=== PATIENT | female | born 1990 | race African-American/Black ===

== ENCOUNTER 2021-02-02 10:47 | Emergency (ER) | payer MEDICARE, SELFPAY ==
--- NOTE | ~2021-02-02 | CT_ITS ---
EXAMINATION: CT abdomen pelvis wo con DATE: 02/02/2021 13:19 INDICATION: Vomiting. Abdominal pain. TECHNIQUE: Computed tomography (CT) of the abdomen and pelvis was performed without intravenous contr ast. Automated exposure control and iterative reconstruction technique were employed. The dose-length product was 812.85 mGy-cm. COMPARISON: None. FINDINGS: The visualized portions of the lung bases are clear without pneumonia or pleural effusion. The heart size is normal. There is a small pericardial effusion. The liver, gallbladder, spleen, panc reas, and adrenal glands are normal. There is severe atrophy of the [place] kidneys. There is a transp lant kidney in right iliac fossa. There are no dilated loops of bowel. The appendix is normal. There are no pathologically enlarged lymph nodes. There is trace pelvic ascites. There is mild lumbar spond ylosis. IMPRESSION: 1. Small pericardial effusion. Reviewed, dictated and finalized at location A.
[2021-02-02 10:56] VITALS: BP 140/91; PULSE 95; RESP 17; TEMP 36.6; O2SAT 99
[2021-02-02 11:54] LABS: Add Urine Microscopic? YES; Appearance Urine Clear (Clear); Bilirubin Urine Negative (Negative); Blood Urine Negative (Negative); Color Urine Yellow (Yellow); Glucose Urine UA Negative (Negative); Ketones Urine Negative (Negative); Leukocyte Esterase Ur Negative LEU/UL (Negative); Nitrate Urine Negative (Negative); Protein Urine 1+ mg/dL (Negative); Specific Grav Ur 1.019 (1.001-1.035); Squamous Epithelial Cell Urine Occasional /hpf (Few); Urobilinogen Urine Negative mg/dL (<2.0); WBC Urine 0-3 /hpf
[2021-02-02 12:31] LABS: Basophils Percent Auto 0.2 % (0.2-1.2); Eosinophils Percent Auto 0.1 % (0-4.4); Hematocrit 40.5 % (37.0-47.0); Hemoglobin 12.7 g/dL (12.0-15.0); Immature Granulocyte Absolute 0.13 K/mm3 (0.00-0.031); Immature Granulocyte Percent A 0.7 % (0-0.5); Lymphocytes Absolute Auto 1.49 K/mm3 (0.9-3.2); Mean Corpuscular HGB Conc 31.4 g/dl (32-36); Mean Corpuscular Hemoglobin 29.2 pg (26-34); Mean Corpuscular Volume 93.1 fl (80-100); Monocytes Absolute Auto 0.9 K/mm3 (0.1-0.6); Monocytes Percent Auto 4.7 % (2.6-8.5); Neutrophils Percent Auto 86.3 % (45.5-73.1); Platelet Count Result 191 k/mm3 (150-375); Red Blood Count 4.35 M/mm3 (4.2-5.4); Red Cell Distribution Width 12.4 % (11.5-14.5); White Blood Count 18.5 K/mm3 (4.5-10.0)
--- NOTE | 2021-02-02 12:31 | ED.GENADULT ---
HPI - General Adult General Chief complaint: Nausea/Vomiting/Diarrhea Stated complaint: Vomiting since 944 today- since stopped Time Seen by Provider: 02/02/21 12:04 Source: RN notes reviewed History of Present Illness HPI narrative: Patient presents to emergency department from home for nausea vomiting. Patient states that for the last day she has had a sore throat and mild rhinorrhea. States that this morning she ate a cup of noodles and subsequently had several episodes of emesis. States that this time she continues have nausea with a feeling of something sitting on her stomach she denies any fevers or chills chest pain shortness of breath cough abdominal pain diarrhea or any other symptoms states she took no medication for the symptoms. Patient does states she has a history of renal transplant 7 months ago at [facility] Related Data Home Medications Medication Instructions Recorded Confirmed Senna Lax 02/02/21 amlodipine 02/02/21 aspirin PO 02/02/21 atorvastatin 02/02/21 carvedilol 02/02/21 hydralazine-hydrochlorothiazid 02/02/21 magnesium 02/02/21 02/02/21 mycophenolate sodium [Myfortic] PO 02/02/21 prednisone 02/02/21 sodium bicarbonate 02/02/21 sulfamethoxazole-trimethoprim tablet 02/02/21 [Bactrim DS] tacrolimus [Envarsus XR] 1 mg PO DAILY 02/02/21 02/02/21 Allergies Allergy/AdvReac Type Severity Reaction Status Date / Time No Known Allergies Allergy Verified 02/02/21 11:37 Review of Systems Review of Systems: Narrative: Gen.: Denies fevers or chills Eyes: Denies eye pain or visual change ENT: See HPI Respiratory: Denies shortness of breath or cough CV: Denies chest pain or palpitations GI: Denies abdominal pain or diarrhea. Reports nausea and vomiting Musculoskeletal: Denies back pain or muscle pain Neuro: Denies numbness, tingling, weakness or focal weakness Skin: Denies rash Except as documented, all other systems reviewed and negative PMFSH Surgical History Surgical History (Updated 02/02/21 @ 12:33 by Bryce Bal DO) Kidney transplant recipient Social History Social History (Updated 02/02/21 @ 12:33 by Bryce Bal DO) Smoking status: Never smoker Exam Narrative: Exam Narrative: APPEARANCE: No acute distress, nontoxic, resting in bed EYES: EOMI HEENT: Normocephalic, atraumatic, nares patent, oral mucosa moist, mild erythema with no exudate posterior pharynx bilateral tonsils uvula midline tolerating own secretions no trismus RESPIRATORY: No respiratory distress Clear to auscultation bilaterally with no rhonchi wheezing or rales. CARDIOVASCULAR: Regular rate and rhythm without murmurs rubs or gallops. ABDOMINAL: Soft, nontender, nondistended, no rebound or guarding MUSCULOSKELETAl: Moves all extremities. No clubbing, cyanosis or edema. NEURO: Awake and alert. Following commands, speech normal, no focal deficits SKIN:: Warm, dry. No rashes lesions or abrasions PSYCHIATRIC: Normal affect/mood, Course Course Emergency Course: Discussed with patient her current white blood cell count she states that she has a history of a chronically elevated white blood cell count Called and discussed with nephrology at [facility] Dr. Henderson states the patient does have a history of elevated WBC. Agrees with plan for discharge to follow-up as an outpatient Patient able to eat and drink in ED with no emesis Discussed with patient results of workup and diagnosis. Discussed need for follow-up with primary care, proper use of medication, and reasons to return to the emergency department. Patient understands and agrees to current treatment plan Vital Signs Vital signs: Vital Signs Temperature 97.8 F 02/02/21 10:56 Pulse Rate 95 02/02/21 10:56 Respiratory Rate 17 02/02/21 10:56 Blood Pressure 140/91 H 02/02/21 10:56 Pulse Oximetry 99 02/02/21 10:56 Temperature 98 F 02/02/21 14:27 Pulse Rate 92 02/02/21 14:27 Respiratory Rate 16 01/15
[2021-02-02 12:41] LABS: Alanine Aminotransferase 12 U/L (4-35); Albumin Level 4.1 g/dL (3.5-5.1); Alkaline Phosphatase 59 U/L (38-126); Anion Gap 6 mmol/L (8-16); Aspartate Amino Transferase 18 U/L (14-36); Bilirubin,Total 0.4 mg/dL (0.2-1.3); Blood Urea Nitrogen 14 mg/dL (7-17); Calcium 9.8 mg/dL (8.4-10.2); Carbon Dioxide 25 mmol/L (22-30); Chloride 107 mmol/L (98-107); Estimated CRCL calculation 116 ml/min; Estimated Glomerular Filt Rate > 60; Glucose 112 mg/dL (65-105); Lipase 45 U/L (23-300); Potassium 4.1 mmol/L (3.4-5.0); Sodium 138 mmol/L (137-145)
[2021-02-02] MEDS: SODIUM CHLORIDE 0.9% IV 1,000 ML 999 ML (12:42)
[2021-02-02] MEDS: FAMOTIDINE 20 MG/2 ML VIAL (12:42)
[2021-02-02] MEDS: ONDANSETRON INJ 4 MG/2 ML VIAL (12:42)
[2021-02-02 14:27] VITALS: BP 123/74; PULSE 92; RESP 16; TEMP 36.6; O2SAT 100
[2021-02-02 15:44] VITALS: BP 134/84; PULSE 95; RESP 18; O2SAT 100
== END 2021-02-02 15:51 | disposition home or self-care (01) ==
PROVIDERS: Emergency Medicine; Emergency Provider Emergency Medicine
DX: J02.9 Acute pharyngitis, unspecified (principal); R11.2 Nausea with vomiting, unspecified; Z94.0 Kidney transplant status
CPT/HCPCS: 36415; 74176; 80053; 81001; 83690; 85025; 87081; 87880; 96361; 96374; 96375; 99284; J2405; J7030

== ENCOUNTER 2022-10-23 23:02 | Inpatient (IN) | payer MEDICARE, SELFPAY ==
--- NOTE | ~2022-10-23 | CT_ITS ---
Non-contrast CT scan of the Abdomen and Pelvis Clinical indication: Abdominal pain Technique: 5 mm axial scans were obtained through the abdomen and pelvis without intravenous or oral contrast. Dose reduction technique was used on this scan by utilizing automated exposure control and iterative reconstruction technique. The dose-length product (DLP) was 816.75 mGy-cm. COMPARISON: 02/02/2021 Findings: Images through the lung bases reveal no abnormalities. Negative kidneys are markedly atrophic. Right lower quadrant transplant kidney is present, without ev idence of hydronephrosis or stone. The liver, spleen, pancreas, gallbladder, and adrenals appear normal. There is no aortic aneurysm. There is no evidence of bowel obstruction. Images through the pelvis were performed. There is no evidence of ascites or lymphadenopathy. Urinary bladder unremarkable. No adnexal mass evident. Impression: No acute abnormality seen. Right lower quadrant transplant kidney present, without evidence of hydronephrosis or stone. Reviewed, dictated and finalized at [facility]. [employer] Impression: No acute abnormality seen. Right lower quadrant transplant kidney present, without evidence of hydronephro sis or stone.
[2022-10-23 23:06] VITALS: BP 129/88; PULSE 109; RESP 16; TEMP 36.7; O2SAT 96
[2022-10-23 23:30] LABS: Appearance Urine Slightly Cloudy (Clear); Bilirubin Urine 1+ (Negative); Blood Urine 3+ (Negative); Color Urine Amber (Yellow); Glucose Urine UA Negative (Negative); Ketones Urine Negative (Negative); Leukocyte Esterase Ur Negative LEU/UL (Negative); Nitrate Urine Negative (Negative); Protein Urine 1+ mg/dL (Negative); Specific Grav Ur >= 1.030 (1.001-1.035); Urobilinogen Urine 0.2 mg/dL (<2.0); pH Urine 5.5 (5.0-9.0)
[2022-10-23 23:32] LABS: Basophils Percent Auto 0.2 % (0.2-1.2); Eosinophils Percent Auto 0.3 % (0-4.4); Hematocrit 43.7 % (37.0-47.0); Hemoglobin 13.7 g/dL (12.0-15.0); Immature Granulocyte Absolute 0.08 K/mm3 (0.00-0.031); Immature Granulocyte Percent A 0.7 % (0-0.5); Lymphocytes Absolute Auto 1.53 K/mm3 (0.9-3.2); Lymphocytes Percent Auto 13.7 % (18.3-44.2); Mean Corpuscular HGB Conc 31.4 g/dl (32-36); Mean Corpuscular Hemoglobin 27.7 pg (26-34); Mean Corpuscular Volume 88.3 fl (80-100); Mean Platelet Volume 9.5 fl (7.4-10.4); Monocytes Absolute Auto 0.8 K/mm3 (0.1-0.6); Monocytes Percent Auto 7.4 % (2.6-8.5); Neutrophils Absolute Auto 8.7 K/mm3 (1.3-6.7); Neutrophils Percent Auto 77.7 % (45.5-73.1); Platelet Count Result 246 k/mm3 (150-375); Red Blood Count 4.95 M/mm3 (4.2-5.4); Red Cell Distribution Width 13.4 % (11.5-14.5); White Blood Count 11.2 K/mm3 (4.5-10.0)
[2022-10-23 23:40] LABS: Bacteria Urine Trace /hpf; Mucus Urine Rare /lpf; RBC Urine >75 /hpf (0-2); Squamous Epithelial Cell Urine Moderate /hpf (Few); WBC Urine 51-75 /hpf
[2022-10-23 23:41] LABS: Alanine Aminotransferase 17 U/L (6-35); Albumin Level 4.1 g/dL (3.5-5.1); Alkaline Phosphatase 80 U/L (38-126); Anion Gap 4 mmol/L (8-16); Aspartate Amino Transferase 19 U/L (14-36); Bilirubin,Total 0.5 mg/dL (0.2-1.3); Blood Urea Nitrogen 10 mg/dL (7-17); Calcium 9.1 mg/dL (8.4-10.2); Carbon Dioxide 25 mmol/L (22-30); Chloride 104 mmol/L (98-107); Estimated CRCL calculation 130 ml/min; Estimated Glomerular Filt Rate > 60; Glucose 108 mg/dL (65-110); Lipase 36 U/L (23-300); Potassium 3.6 mmol/L (3.4-5.0); Sodium 133 mmol/L (137-145)
[2022-10-23 23:45] LABS: Add Urine Microscopic? YES
[2022-10-24] VITALS (7 sets, daily range): BP systolic 111–141; BP diastolic 65–95; PULSE 85–102; RESP 14–18; TEMP 35.9–37.1; O2SAT 97–100
--- NOTE | 2022-10-24 01:16 | ED.GENADULT ---
HPI - General Adult General Chief complaint: Abdominal Pain Stated complaint: abdominal pain Time Seen by Provider: 10/24/22 01:02 History of Present Illness HPI narrative: 32-year-old female present emergency department for evaluation of nausea vomiting and abdominal pain that started last night. Patient states last night she was having some lower pelvic pain and then today she primarily was having issues with nausea and vomiting. Patient is a kidney transplant from 2019 secondary to issues with eclampsia and subsequent hypertension. Patient follows up at [facility] transplant team. Patient does take mycophenolate and tacrolimus. Patient is also on a number of blood pressure medications. Related Data Home Medications Medication Instructions Recorded Confirmed Senna Lax 02/02/21 amlodipine 10 mg tablet 10 mg PO DAILY 02/02/21 10/24/22 aspirin 81 mg tablet 81 mg PO DAILY 02/02/21 10/24/22 atorvastatin 20 mg PO DAILY 02/02/21 10/24/22 carvedilol 25 mg tablet 25 mg PO DAILY 02/02/21 10/24/22 magnesium 400 mg PO DAILY 02/02/21 10/24/22 mycophenolate sodium 180 mg 180 mg PO DAILY 02/02/21 10/24/22 tablet,delayed release (Myfortic) prednisone 5 mg tablet 5 mg PO DAILY 02/02/21 10/24/22 sodium bicarbonate 02/02/21 tacrolimus 1 mg tablet,extended 1 mg PO DAILY 02/02/21 10/24/22 release 24 hr (Envarsus XR) hydralazine 50 mg tablet 50 mg PO TID 10/24/22 10/24/22 nifedipine 30 mg tablet,extended 30 mg PO DAILY 10/24/22 10/24/22 release Allergies Allergy/AdvReac Type Severity Reaction Status Date / Time No Known Allergies Allergy Verified 10/24/22 00:03 Review of Systems Review of Systems: CONSTITUTIONAL: Denies fever, chills, or sweats. EYES: Denies visual changes, redness, or discharge. ENT: Denies rhinorrhea, congestion, sore throat, or otalgia. CARDIOVASCULAR: Denies chest pain, palpitations, or edema. RESPIRATORY: Denies cough or dyspnea. GASTROINTESTINAL: See HPI GENITOURINARY: See HPI SKIN: Denies rash or itching. MUSCULOSKELETAL: Denies back pain, joint pain, or myalgia. NEUROLOGIC: Denies headache, numbness, or weakness. [facility] Surgical History Surgical History (Updated 10/24/22 @ 04:54 by Javier Baxter MD) Kidney transplant recipient Family History Family History Other Unknown family medical history Social History Social History (Updated 02/02/21 @ 12:33 by Bryce Bal DO) Smoking status: Never smoker Second hand tobacco smoke exposure: No Substance use: never Lack of Transportation: No Lack of Food: Never True Current Housing: I Have Housing Concerned About Future Housing: No Difficulty Paying Gas/Electric Bills: No Difficulty Paying for Meds: No Currently Unemployed: No Education: Don't Know Difficulty w/ Childcare or Family Care: No Spiritual care concerns: No Exam Narrative: APPEARANCE: Well appearing, no pain, no distress, well-nourished. HEAD: normocephalic, atraumatic. EYES: PERRLA/EOMI, conjunctivae clear. NOSE: Normal no drainage NECK: Supple. No adenopathy, no masses. RESPIRATORY: Airway patent, respirations nonlabored. Clear to auscultation bilaterally, no rales, rhonchi, wheezing. CARDIOVASCULAR: Regular rate and rhythm without murmurs rubs or gallops. ABDOMINAL: Soft nondistended, normal bowel sounds, mild upper abdominal tenderness. No lower abdominal tenderness to palpation MUSCULOSKELETAL: Moves all extremities. Strength/ROM intact, No edema, No calf tenderness. NEURO: Alert. Cranial nerves II through XII intact. Grossly intact SKIN: Warm, dry. Normal Color Course Course Emergency Course: UA was concerning for urinary tract infection. Urine cultures were ordered. Patient was started on Rocephin IV. Patient was also treated with normal saline and 4 mg of IV Zofran. Patient's BUN and creatinine are within normal limits. Case was discussed with the patient's gui developer a
[2022-10-24] MEDS: SODIUM CHLORIDE 0.9% IV 1,000 ML 999 ML IV CONT (01:40)
--- NOTE | 2022-10-24 01:55 | PM.IMHP ---
H&P: HPI History of Present Illness Date/Time: 10/24/22 01:55 Chief Complaint: Abdominal pain Narrative: This is a 32-year-old female with past medical history significant for eclampsia, end-stage renal disease, hypertension, patient is now status post a renal transplant and currently on immunosuppressive therapy mycophenolate and tacrolimus. Patient presents to the emergency room due to abdominal pain discomfort with urination, nausea, vomiting generalized malaise, denies fevers, rigors, chills, night sweats. Preliminary workup was significant for urinalysis with numerous WBCs present, patient tested negative for influenza type A, influenza type B, RSV, COVID-19. Transplant team has been contacted. Patient is been admitted for further evaluation management and treatment. Review of Systems Review of Systems: Abdominal pain, nausea, vomiting pain or burning with urination, generalized malaise. Constitutional: Constitutional: Denies chills, Reports fatigue, Denies fever(s), Reports lethargy, Reports malaise, Denies night sweats and Reports poor appetite Eyes: Eyes: Denies change in vision ENT: Denies dysphagia and Denies odynophagia Cardiovascular: Cardiovascular: Denies chest pain, Denies leg edema, Denies lightheadedness and Denies palpitations Respiratory: Respiratory: Denies change in phlegm color, Denies chest congestion, Denies cough, Denies excessive phlegm production, Denies pain on inspiration, Denies dyspnea and Denies dyspnea on exertion Gastrointestinal: Gastrointestinal: Reports abdominal pain, Denies dyspepsia, Reports heartburn, Denies diarrhea, Reports nausea and Reports vomiting Genitourinary: Genitourinary: Reports dysuria Musculoskeletal: Musculoskeletal: Reports muscle weakness Integumentary/Breasts: Skin/Breast: Denies rash Neurologic: Denies focal weakness and Denies Sensory deficit (Neuro) Psychiatric: Psychiatric: Reports no additional psychiatric complaints and Reports as per HPI Endocrine: Endocrine: Denies cold intolerance, Denies flushing, Denies heat intolerance, Denies polyphagia, Denies polydipsia and Denies palpitations Hematologic/Lymphatic: Hematologic/Lymphatic: Reports no additional hematologic/lymphatic complaints and Reports as per HPI Allergic/Immunologic: Allergic/Immunologic: Reports no additional allergic/immunologic complaints and Reports as per HPI PMFSH Surgical History Surgical History (Updated 02/02/21 @ 12:33 by Bryce Bal DO) Kidney transplant recipient Social History Social History (Updated 02/02/21 @ 12:33 by Bryce Bal DO) Smoking status: Never smoker Meds Home Medications and Allergies Home Medications Medication Instructions Recorded Confirmed Type Senna Lax 02/02/21 History amlodipine 10 mg tablet 02/02/21 History aspirin 81 mg tablet PO 02/02/21 History atorvastatin 02/02/21 History carvedilol 25 mg tablet 02/02/21 History famotidine 20 mg tablet (Pepcid) 20 mg PO DAILY #14 tabs 02/02/21 Rx magnesium 02/02/21 02/02/21 History mycophenolate sodium 180 mg PO 02/02/21 History tablet,delayed release (Myfortic) ondansetron 4 mg disintegrating 4 mg PO Q6H PRN nausea and 02/02/21 Rx tablet vomiting #10 tabs prednisone 5 mg tablet 02/02/21 History sodium bicarbonate 02/02/21 History tacrolimus 1 mg tablet,extended 1 mg PO DAILY 02/02/21 02/02/21 History release 24 hr (Envarsus XR) hydralazine 50 mg tablet 50 mg PO TID 10/24/22 10/24/22 History nifedipine 30 mg tablet,extended 30 mg PO DAILY 10/24/22 10/24/22 History release Allergies Allergy/AdvReac Type Severity Reaction Status Date / Time No Known Allergies Allergy Verified 10/24/22 00:03 Vital Signs Vital Signs - 24 hr 10/23/22 23:06 10/24/22 00:01 10/24/22 01:41 Temperature 98.1 F 98.7 F Pulse Rate 109 H 102 H 95 Respiratory Rate 16 14 14 Blood Pressure 129/88 120/65 114/67 Pulse Oximetry 96 98 97 Exam Narrative: Patient
[2022-10-24 02:23] LABS: Influenza A QL RT-PCR Negative (Negative); Influenza B QL RT-PCR Negative (Negative); RSV RNA, RT-PCR Negative (Negative); SARS-CoV-2 RNA PCR Negative
[2022-10-24] MEDS: ONDANSETRON INJ 4 MG/2 ML VIAL IV PUSH (02:27)
[2022-10-24 02:44] LABS: Pregnancy On Board Control Positive; Urine Pregnancy Test Negative
[2022-10-24 10:19] LABS: Basophils Percent Auto 0.2 % (0.2-1.2); Eosinophils Percent Auto 0.4 % (0-4.4); Hematocrit 38.7 % (37.0-47.0); Hemoglobin 12.1 g/dL (12.0-15.0); Immature Granulocyte Absolute 0.07 K/mm3 (0.00-0.031); Immature Granulocyte Percent A 0.8 % (0-0.5); Lymphocytes Percent Auto 19.1 % (18.3-44.2); Mean Corpuscular HGB Conc 31.3 g/dl (32-36); Mean Corpuscular Hemoglobin 27.3 pg (26-34); Mean Corpuscular Volume 87.2 fl (80-100); Mean Platelet Volume 9.6 fl (7.4-10.4); Monocytes Absolute Auto 0.8 K/mm3 (0.1-0.6); Monocytes Percent Auto 9.9 % (2.6-8.5); Neutrophils Absolute Auto 5.8 K/mm3 (1.3-6.7); Neutrophils Percent Auto 69.6 % (45.5-73.1); Platelet Count Result 213 k/mm3 (150-375); Red Blood Count 4.44 M/mm3 (4.2-5.4); Red Cell Distribution Width 13.4 % (11.5-14.5); White Blood Count 8.4 K/mm3 (4.5-10.0)
[2022-10-24 10:38] LABS: Anion Gap 5 mmol/L (8-16); Blood Urea Nitrogen 10 mg/dL (7-17); Calcium 8.6 mg/dL (8.4-10.2); Carbon Dioxide 24 mmol/L (22-30); Chloride 102 mmol/L (98-107); Estimated CRCL calculation 130 ml/min; Estimated Glomerular Filt Rate > 60; Glucose 109 mg/dL (65-110); Potassium 3.2 mmol/L (3.4-5.0); Sodium 131 mmol/L (137-145)
[2022-10-24] MEDS: predniSONE 5 MG TABLET PO (11:06)
[2022-10-24] MEDS: ASPIRIN 81 MG CHEWABLE TABLET PO (11:06)
[2022-10-24] MEDS: carvediloL 25 MG TABLET PO ×2 (11:06→21:39)
[2022-10-24] MEDS: ATORVASTATIN 20 MG TABLET PO (11:07)
[2022-10-24] MEDS: MAGNESIUM OXIDE 400 MG TABLET PO (11:07)
[2022-10-24] MEDS: FAMOTIDINE 20 MG TABLET PO (11:07)
--- NOTE | 2022-10-24 14:09 | PM.IMPN ---
Progress Note: A&P Assessment and Plan (1) Urinary tract infection: Code(s): N39.0 - Urinary tract infection, site not specified Status: Acute (2) Kidney transplant recipient: Code(s): Z94.0 - Kidney transplant status Status: Acute (3) Hypokalemia: Code(s): E87.6 - Hypokalemia Status: Acute Plan ?32-year-old female with past medical history significant for eclampsia, end-stage renal disease, hypertension, patient is now status post a renal transplant and currently on immunosuppressive therapy mycophenolate and tacrolimus presented to the emergency room due to abdominal pain discomfort with urination, nausea, vomiting generalized malaise, denies fevers, rigors, chills, night sweats.Found to have UTI. 1)UTI: C/w Ceftriaxone No pain Await Urine culture Leucocytosis has resolved 2)Hypokalemia:supplement potassium 3)H/o Renal Transplant: CT abdomen with no acute concerns Hold immunosuppressive agents c/w Prednisone 3)HTN:c/w Norvasc, Coreg 4)DVT ppx: Hep SQ 5)Code:Full 6)Dispo:anticipate discharge in 1-2 days if stable Time Spent With Patient Time with patient: 15 - 25 minutes Subjective Date/time seen: 10/24/22 14:09 Interval history: feeling well No acute events overnight Review of Systems Review of Systems: All systems reviewed & are unremarkable except as noted in HPI and below Constitutional: Constitutional: Reports no additional constitutional complaints Eyes: Eyes: Reports no additional eye complaints ENT: Reports system reviewed and no additional complaints, except as documented Cardiovascular: Cardiovascular: Reports no additional cardiovascular complaints Respiratory: Respiratory: Reports no additional respiratory complaints Gastrointestinal: Gastrointestinal: Reports no additional gastrointestinal complaints Musculoskeletal: Musculoskeletal: Reports no additional musculoskeletal complaints Neurologic: Reports system reviewed and no additional complaints, except as documented Exam Const: General: comfortable and no acute distress HENMT: Mouth: Yes moist mucous membranes Eyes: Sclera: sclerae normal Pupils: Equal, round and reactive pupils present Neck: Neck: supple Resp: Effort & Inspection: normal respiratory effort Cardio: Rate: regular rate Rhythm: regular rhythm GI: GI Palp: Yes Soft to palpation Auscultation: normal bowel sounds Other: non tender Skin: General skin exam: normal color Neuro: General: gait normal Speech: normal speech Extrem: General: normal to inspection Psych: Mental Status: mental status grossly normal Objective Data Vital Signs Vital Signs: Vital Signs - 24 hr 10/23/22 23:06 10/24/22 00:01 10/24/22 01:41 Temperature 98.1 F 98.7 F Pulse Rate 109 H 102 H 95 Respiratory Rate 16 14 14 Blood Pressure 129/88 120/65 114/67 Pulse Oximetry 96 98 97 Oxygen Delivery 10/24/22 02:30 10/24/22 04:33 10/24/22 06:00 Temperature 97 F L Pulse Rate 91 86 Respiratory Rate 14 14 Blood Pressure 111/74 112/74 Pulse Oximetry 98 100 Oxygen Delivery Room Air 10/24/22 08:00 Temperature Pulse Rate Respiratory Rate Blood Pressure Pulse Oximetry Oxygen Delivery Room Air Intake/Output Intake/Output: Intake & Output 10/21/22 10/22/22 10/23/22 10/24/22 23:59 23:59 23:59 23:59 Intake Total 1498 Balance 1498 Meds/Results Medications: Active Medications Generic Name Dose Route Start Last Admin Trade Name Stephanie PRN Reason Stop Dose Admin Amlodipine Besylate 10 mg 10/24/22 09:00 10/24/22 11:08 Amlodipine Besylate 5 Mg Tablet PO Not Given DAILY PAUL Aspirin 81 mg 10/24/22 09:00 10/24/22 11:06 Aspirin 81 Mg Chewable Tablet PO 11/24/22 08:59 81 mg DAILY PAUL Administration Atorvastatin Calcium 20 mg 10/24/22 09:00 10/24/22 11:07 Atorvastatin 20 Mg Tablet PO 11/24/22 08:59 20 mg DAILY PAUL Administration Carvedilol 25 mg
[2022-10-24] MEDS: POTASSIUM CHLORIDE 20 MEQ PACKET (FOR LIQUID) 40 MEQ PO (16:55)
[2022-10-25 05:12] VITALS: BP 129/76; PULSE 81; RESP 16; TEMP 36.7; O2SAT 100
[2022-10-25 06:37] LABS: Basophils Percent Auto 0.3 % (0.2-1.2); Eosinophils Percent Auto 0.4 % (0-4.4); Hematocrit 39.3 % (37.0-47.0); Hemoglobin 12.1 g/dL (12.0-15.0); Immature Granulocyte Absolute 0.11 K/mm3 (0.00-0.031); Lymphocytes Absolute Auto 2.47 K/mm3 (0.9-3.2); Lymphocytes Percent Auto 21.7 % (18.3-44.2); Mean Corpuscular HGB Conc 30.8 g/dl (32-36); Mean Corpuscular Hemoglobin 26.9 pg (26-34); Mean Corpuscular Volume 87.5 fl (80-100); Monocytes Absolute Auto 1.1 K/mm3 (0.1-0.6); Monocytes Percent Auto 9.6 % (2.6-8.5); Neutrophils Absolute Auto 7.6 K/mm3 (1.3-6.7); Platelet Count Result 230 k/mm3 (150-375); Red Blood Count 4.49 M/mm3 (4.2-5.4); Red Cell Distribution Width 13.3 % (11.5-14.5); White Blood Count 11.4 K/mm3 (4.5-10.0)
[2022-10-25 06:52] LABS: Anion Gap 3 mmol/L (8-16); Blood Urea Nitrogen 11 mg/dL (7-17); Calcium 8.9 mg/dL (8.4-10.2); Carbon Dioxide 26 mmol/L (22-30); Chloride 106 mmol/L (98-107); Estimated CRCL calculation 130 ml/min; Estimated Glomerular Filt Rate > 60; Glucose 96 mg/dL (65-110); Potassium 3.5 mmol/L (3.4-5.0); Sodium 135 mmol/L (137-145)
[2022-10-25 08:19] VITALS: PULSE 81
[2022-10-25] MEDS: ASPIRIN 81 MG CHEWABLE TABLET PO (08:19)
[2022-10-25] MEDS: FAMOTIDINE 20 MG TABLET PO (08:19)
[2022-10-25] MEDS: predniSONE 5 MG TABLET PO (08:19)
[2022-10-25] MEDS: carvediloL 25 MG TABLET PO (08:19)
[2022-10-25] MEDS: MAGNESIUM OXIDE 400 MG TABLET PO (08:19)
[2022-10-25] MEDS: HEPARIN SODIUM 5,000 UNITS/ML VIAL 5000 UNITS SUB-Q (08:19)
[2022-10-25] MEDS: POTASSIUM CHLORIDE 20 MEQ PACKET (FOR LIQUID) 40 MEQ PO (08:19)
[2022-10-25] MEDS: ATORVASTATIN 20 MG TABLET PO (08:19)
[2022-10-25] MEDS: amLODIPine BESYLATE 5 MG TABLET 10 MG PO (08:19)
[2022-10-25 10:41] VITALS: O2SAT 96
--- NOTE | 2022-10-25 11:51 | PM.DS ---
DS: Admitting Diagnosis Discharge Date October 25, 2022 Admitting Diagnosis UTI DS: Discharge Diagnosis Discharge Diagnosis (1) Urinary tract infection: Code(s): N39.0 - Urinary tract infection, site not specified Status: Acute (2) Kidney transplant recipient: Code(s): Z94.0 - Kidney transplant status Status: Acute (3) Hypokalemia: Code(s): E87.6 - Hypokalemia Status: Acute DS: Summary Hospital Course Hospital Course: 32-year-old history of kidney transplant comes in with UTI. Creatinine remains stable. Will resume all of her home medications and continue Omnicef on discharge Time Spent with Patient Time attestation: Total time spent providing and/or coordinating discharge services: Exam Const: General: comfortable, no acute distress, well developed, alert, awake, average body habitus and overweight Nutritional Appearance: average body habitus and overweight Orientation/consciousness: patient oriented x3 HENMT: Head: normal to inspection, normocephalic and atraumatic Ears: hearing grossly normal bilaterally Face/Nose/Sinus: normal facial exam Face and sinus: normal facial exam Mouth: Yes moist mucous membranes Eyes: General: appearance normal, both eyes and all related structures Sclera: sclerae normal Pupils: Equal, round and reactive pupils present EOM: EOMs intact bilaterally Neck: Neck: full ROM, no lymphadenopathy, supple and no JVD Thyroid: thyroid normal Lymphatic: no lymphadenopathy noted Resp: Effort & Inspection: normal respiratory effort and able to speak in complete sentences Auscultation: clear to auscultation bilaterally Cardio: Jugular venous distension: no JVD Rate: regular rate Rhythm: regular rhythm Heart sounds: S1 normal heart sound present and S2 normal heart sound present GI: Auscultation: normal bowel sounds : General: Yes deferred Skin: General skin exam: normal color Rashes: no rashes Wounds: no wounds Neuro: General: patient oriented x3, gait normal, CN's II-XI intact bilaterally and Unable to assess gait Cranial nerves: Yes CN's II-XII intact bilaterally and Yes Equal, round and reactive pupils present Cognition (Neuro): normal cognition Speech: normal speech Gait exam (Neuro): Unable to assess gait Motor exam (neuro): 5/5 motor strength present throughout Sensory Exam: No Sensory deficit (Neuro) Extrem: General: normal to inspection, full ROM, no joint enlargement and no pedal edema Psych: Mental Status: mental status grossly normal DS: Data Data Completed and Pending Labs on day of discharge: Labs from last 24 hours 10/25/22 10/25/22 05:56 05:56 WBC 11.4 H RBC 4.49 Hgb 12.1 Hct 39.3 MCV 87.5 MCH 26.9 MCHC 30.8 L RDW 13.3 Plt Count 230 MPV 10.0 Immature Gran % (Auto) 1.0 H Neut % (Auto) 67.0 Lymph % (Auto) 21.7 [place] % (Auto) 9.6 H Eos % (Auto) 0.4 Baso % (Auto) 0.3 Lymph # (Auto) 2.47 [place] # (Auto) 1.1 H Eos # (Auto) 0.0 Baso # (Auto) 0.0 Abs Immat Gran (auto) 0.11 H Absolute Neuts (auto) 7.6 H Absolute Nucleated RBC 0.0 Nucleated RBC % 0.0 Sodium 135 L Potassium 3.5 Chloride 106 Carbon Dioxide 26 Anion Gap 3 L BUN 11 Creatinine 0.70 Estim Creat Clear Calc 130 Estimated GFR > 60 Glucose 96 Calcium 8.9 Discharge Plan Discharge Attending physician on discharge: Darrion Whiteside Discharging Clinician: Darrion Whiteside Patient Disposition: Home, Self-Care Activity: no preference Diet: as tolerated Patient Instructions: Antibiotic Form Stand Alone Forms: General Discharge Information Follow-up/Referrals: Cricket Medley MD [Primary Care Provider] - Discharge Medications: New cefdinir 300 mg capsule 300 mg PO Q12H Qty: 10 0RF Continued nifedipine 30 mg tablet extended release 30 mg PO DAILY hydralazine 50 mg tablet 50 mg PO TID carvedilol 25 mg Tablet 25 mg PO DAILY
== END 2022-10-25 13:13 | disposition home or self-care (01) | DRG 689 ==
LOC: ANHED 10-24 01:02 → ANH3MEDSUR 10-24 02:38
PROVIDERS: Internal Medicine; Admitting Provider Internal Medicine; Emergency Provider Emergency Medicine; PCP Emergency Medicine; Visit Provider Chiropractor
DX: N39.0 Urinary tract infection, site not specified (principal); N18.6 End stage renal disease; Z94.0 Kidney transplant status; I12.0 Hypertensive chronic kidney disease with stage 5 chronic kidney disease or end stage renal disease; E87.6 Hypokalemia; Z79.82 Long term (current) use of aspirin; Z20.822 Contact with and (suspected) exposure to COVID-19
CPT/HCPCS: 36415; 74176; 80048; 80053; 81001; 81025; 83690; 85025; 87086; 87637; 96365; 99285; A9270; J0696; J1644; J2405; J7030; J7512